=== PATIENT | female | born 1985 | race Caucasian/White ===

== ENCOUNTER 2023-10-25 23:19 | Observation (INO) | payer OTHER, SELFPAY ==
[2023-10-25] VITALS (8 sets, daily range): BP systolic 129–143; BP diastolic 96–101; PULSE 80–85; RESP 14–23; TEMP 36.7; O2SAT 97–99; BMI 31.6
--- NOTE | 2023-10-25 23:37 | ECG_ITS ---
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
--- NOTE | 2023-10-25 23:37 | XR_ITS ---
[place] [address] Patient Name: KRISTIAN CAN MRN: [id number] date: 1985 Sex: F Assigned Patient Location: ER Current Patient Location: ER Accession/Order Number: [id number] Exam Date: 10/25/2023 23:45 Report Date: 10/26/2023 00:12 At the request of: MJ ESQUIVEL Procedure: XR chest 1V EXAM: XR chest 1V HISTORY: chest pain COMPARISON: Chest x-ray 08/27/2012 TECHNIQUE: Single frontal view chest x-ray FINDINGS: No lung consolidation, large pleural effusion, pneumothorax, or acute bony abnormality. Cardiac size is unremarkable. XR/XR chest 1V IMPRESSION: No radiographic evidence for acute chest abnormality. Electronically authenticated by: JENNIFER JUAREZ Date: 10/26/2023 00:12
--- NOTE | 2023-10-25 23:38 | CT_ITS ---
The [address] [address] Patient Name: KRISTIAN CAN MRN: [id number] date: 1985 Sex: F Assigned Patient Location: ER Current Patient Location: ED.MAIN Accession/Order Number: [id number] Exam Date: 10/25/2023 23:45 Report Date: 10/26/2023 00:10 At the request of: MJ ESQUIVEL Procedure: CT stroke head/brain wo con NONCONTRAST HEAD CT COMPARISON: None. CLINICAL HISTORY: Headache. TECHNIQUE: Routine noncontrast images of the brain obtained. CT examination of the head without IV contrast. Dose reduction techniques were achieved by using: automated exposure control and/or adjustment of mA and /or kV according to patient size and/or use of iterative reconstruction technique. FINDINGS: Paranasal sinuses and mastoid air cells are clear. Intraorbital contents are unremarkable. No acute bony abnormality. Intracranially, there is no evidence of hemorrhage, mass effect, or midline shift. Ventricles and cisternal spaces are age appropriate. CT/CT stroke head/brain wo con IMPRESSION: No acute intracranial abnormality. Electronically authenticated by: REJI PEREZ Date: 10/26/2023 00:10
--- NOTE | 2023-10-25 23:39 | ED_ITS ---
HPI - General Adult General Chief complaint: Headache Stated complaint: HEADACHE, CHEST PAIN Time Seen by Provider: 10/25/23 23:29 Source: patient Mode of arrival: walk-in History of Present Illness HPI narrative: complains of headache for one week. nose bleed on and off during the week. States around 9AM today her vision became blurry and this continues. Right frontal parietal headache. States Squad stop by her home tonight and her BP was elevated 168 systolic. No history of Hypertension. No focal extremity weakness or numbness. She describes holding her phone close to her face since this AM to read Text and this is new. Denies past history of the same. Has been taking Tylenol for her headaches Related Data Previous Rx's Medication Instructions Recorded sumatriptan succinate 50 mg tablet See Rx Instructions PO .COMPLEX #9 10/26/23 tabs verapamil 240 mg 24 hr 240 mg PO DAILY #30 caps 10/26/23 capsule,extended release Allergies Allergy/AdvReac Type Severity Reaction Status Date / Time No Known Drug Allergies Allergy Verified 10/25/23 23:31 Review of Systems ROS Status of ROS 10 or more systems reviewed and unremark able except as noted in history and below [facility] Surgical History (Updated 10/26/23 @ 03:22 by Kaylen Neil) H/O hernia repair ?Z98.890 - Other specified postprocedural states (ICD-10) ?Z87.19 - Personal history of other diseases of the digestive system (ICD-10) History of tonsillectomy ?Z90.89 - Acquired absence of other organs (ICD-10) History of cholecystectomy ?Z90.49 - Acquired absence of other specified parts of digestive tract (ICD- 10) Family History (Updated 10/26/23 @ 03:23 by Kaylen Neil) Mother Family history of cancer Father Family history of CHF (congestive heart failure) Family history of hypertension Grandfather Family history of myocardial infarction Grandmother Family history of myocardial infarction Social History (Updated 10/26/23 @ 03:25 by Kaylen Neil) Within the past year, how often did you have a drink containing alcohol: never Score interpretation: A score less than 3 is consistent with normal alcohol consumption. 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 Highest level of school completed/degree received: high school graduate Are you now , , , , never or living with a partner: never In a typical week, how many times do you talk on the telephone with family, friends, or neighbors: 3 or more times per week How often do you get together with friends or relatives: 3 or more times per week How often do you attend confucianism or voodoo services: never Little interest or pleasure in doing things: not at all Feeling down, depressed, or hopeless: not at all Feel stressed/tense/nervous/anxious/difficulty sleeping: not at all Do you think of yourself as: straight/heterosexual Gender Identity: female Exam Constitutional Vital Signs, click to edit/add: Last Vital Signs Temp 97.8 F 10/26/23 13:23 Pulse 83 10/26/23 14:14 Resp 16 10/26/23 13:23 BP 119/82 10/26/23 14:14 Pulse Ox 97 10/26/23 14:14 O2 Del Method Room Air 10/26/23 14:14 Common normals: no apparent distress, average body habitus, oriented x3, no limitations, healthy appearing, alert and well nourished Eye Common normals: PERRL, EOMs intact bilaterally and conjunctivae normal Other: retina exam grossly normal Respiratory Common normals: normal respiratory effort, no retractions, no use of accessory muscles and clear to auscultation bilaterally Cardio Common normals: regular rate, regular rhythm, S1 normal heart sound and S2 normal heart sound Other: neg Bruits GI Common normals: Normal to inspection, nondistended, normoactive bowel sounds present, soft to palpation and non-tender Extremity Common normals: normal to inspection and full ROM Neuro Common normals: oriented x3, CN's II-XII intact bilaterally, moves all extremities, no focal motor deficits and no sensory deficits noted Psych Appearance: grossly normal Course Vital Signs Vital signs: Vital Signs Pulse Oximetry 99 10/25/23 23:26 Temperature 97.8 F 10/26/23 13:23 Pulse Rate 83 10/26/23 14:14 Respiratory Rate 16 10/26/23 13:23 Blood Pressure 119/82 10/26/23 14:14 Pulse Oximetry 97 10/26/23 14:14 Oxygen Delivery Method Room Air 10/26/23 14:14 Medical Decision Making MDM Narrative Medical decision making narrative: patient presents complaining of headache of one week duration. Nose bleed on and off. Around 9AM 10/25/23 developed blurred vision that has continued. blurred vision involves both eye. Jigna was called to her home and her BP was elevated at 168 systolic. She came in for evaluation . Her physical exam is nonrevealing including gross inspection of her retina bilat. CT brain and neck neg. Discussed with materials and corrosion engineer Stroke Neurologist at [facility] and he recommended admission with plan for MRI brain with and without contrast and Neurology consult. Neurology consult here will have to be Teleneurology. Discussed with the [facility] Dr Hu and patient accepted for admission. Patient's BP here is normal. She was given cocktail of magnesium and solumedrol for her headache prior to transfer to the floor Lab Data Labs: Lab Results 10/25/23 Range/Units 23:30 WBC 6.9 (4.0-11.0) 10^3/uL RBC 4.47 (4.20-5.40) 10^6/uL Hgb 13.4 (12.0-16.0) g/dL Hct 40.2 (36.0-48.0) % MCV 89.9 (81.0-99.0) fL MCH 30.0 (26.7-34.0) pg MCHC 33.3 (29.9-35.2) g/dL RDW 12.0 (11.0-15.0) % Plt Count 182 (150-450) 10^3/uL MPV 9.5 (9.5-13.5) fL Neut % (Auto) 49.5 (43.0-75.0) % Lymph % (Auto) 41.0 (20.5-60.0) % [place] % (Auto) 7.8 (1.7-12.0) % Eos % (Auto) 0.9 (0.9-7.0) % Baso % (Auto) 0.7 (0.2-2.0) % Neut # (Auto) 3.4 (1.4-6.5) 10^3/uL Lymph # (Auto) 2.8 (1.2-3.8) 10^3/uL [place] # (Auto) 0.5 (0.3-0.8) 10^3/uL Eos # (Auto) 0.1 (0.0-0.7) 10^3/uL Baso # (Auto) 0.1 (0.0-0.1) 10^3/uL Abs Immat Gran (auto) 0.01 (0.00-0.03) 10^3/uL Imm/Tot Granulo (auto) 0.1 (0.0-0.5) % Sodium 139 (136-145) mmol/L Potassium 3.3 L (3.5-5.1) mmol/L Chloride 103 (98-107) mmol/L Carbon Dioxide 25.9 (21.0-32.0) mmol/L Anion Gap 13.4 BUN 11.0 (7.0-18.0) mg/dL Creatinine 0.98 (0.55-1.02) mg/dL Est GFR ( Amer) >60 (>=60) Est GFR (Non-Af Amer) >60 (>=60) BUN/Creatinine Ratio 11.2 Glucose 99 (74-106) mg/dL Calcium 9.2 (8.5-10.1) mg/dL Troponin I High Sens <4.0 L (4.0-51.3) pg/mL Imaging Data CT scan - head: Radiologist's impression: [place] [address] CT Scan Report Signed Patient: KRISTIAN CAN MR#: [id number] : 1985 Acct:[id number] Age/Sex: 38 / F ADM Date: 10/25/23 Loc: ER Attending Dr: Ordering Physician: Dionte Abreu Date of Service: 10/26/23 Procedure(s): CT angio neck Accession Number(s): [id number] cc: Physician,Non-Staff M.DJohny~ The [address] [address] Patient Name: KRISTIAN CAN MRN: [id number] date: 1985 Sex: F Assigned Patient Location: ER Current Patient Location: ER Accession/Order Number: [id number] Exam Date: 10/26/2023 00:25 Report Date: 10/26/2023 01:25 At the request of: DIONTE ABREU Procedure: CT angio neck CT angio head, CT angio neck INDICATION:38 years old; headache for one week. Blurred vision since 10/25/2020 3:00 in the morning. TECHNIQUE: CT angiogram of the head and neck was performed. Coronal, sagittal and 3-D reformats were created and reviewed. IV contrast Omnipaque 350 100mL. No complications . Carotid stenosis measurements were made according to the NASCET criteria. Ionizing radiation dose reduced via iterative reconstruction/FBP blend and body size kV/mA adjustment. COMPARISON: Head CT dated 10/25/2023 at 11:55 PM. FINDINGS: NECK FINDINGS: AORTIC ARCH: Normal origin of the innominate, left common carotid and left subclavian arteries. ANTERIOR CIRCULATION: , Carotid arteries are patent. Carotid bifurcations are patent. Cervical ICA are patent up to the skull base. No stenosis or thrombus. No dissection. POSTERIOR CIRCULATION: There is irregular appearance of the V1 segment of the right vertebral artery, which has the appearance of streak artifacts. No intraluminal thrombus or dissection is seen. The left V1 segment has a normal appearance. The V2 and V3 segments are patent. No intraluminal thrombus. No dissection. DEVELOPMENTAL ANOMALIES: None. OTHER: No thyroid nodule or adenopathy. HEAD BRAIN: Please see the report of the noncontrast head CT. ANTERIOR CIRCULATION: The intrapetrous, intracavernous, supraclinoid ICA are patent. Intracranial termini are patent. DIONICIO patent bilaterally. MCA patent bilaterally. No stenosis or thrombus. No large vessel occlusion. No aneurysm is appreciated. The distal distributions are symmetric. POSTERIOR CIRCULATION: The V4 segments are patent. PICA patent. Basilar artery and basilar tip are patent. SCA patent bilaterally. MASTER DATA ANALYST patent bilaterally. No large vessel occlusion. Distal distributions appear symmetric. DEVELOPMENTAL ANOMALIES: None. OTHER: No areas of pathologic intracranial enhancement. The study is not optimized for venous evaluation. CT/CT angio neck IMPRESSION: 1. Streak artifacts overlying the V1 segment of the right vertebral artery. The remainder the extracranial vessels demonstrate no stenosis, thrombus, dissection, or large vessel occlusion. 2. Intracranial vessels demonstrate no stenosis, thrombus, aneurysm, or large vessel occlusion. 3. No pathologic intracranial enhancement. If there is continued suspicion for intracranial pathology including, but not limited to, migraine, demyelination, or infarction, then MRI with diffusion imaging would be more sensitive. Electronically authenticated by: WILLAM SUMNER Date: 10/26/2023 01:25 Dictated By: Willam Sumner M.D. Signed By: 10/26/23 0129 Discharge Plan Discharge Chief Complaint: Headache Clinical Impression: Headache, Blurred vision, bilateral Patient Disposition: Admitted as Observation Time of Disposition Decision: 03:24 Condition: Good Discharge Date/Time: 10/26/23 03:24
[2023-10-25 23:56] LABS: Basophils Absolute Auto 0.1 10^3/uL (0.0-0.1); Basophils Percent Auto 0.7 % (0.2-2.0); Eosinophils Absolute Auto 0.1 10^3/uL (0.0-0.7); Eosinophils Percent Auto 0.9 % (0.9-7.0); Hematocrit 40.2 % (36.0-48.0); Hemoglobin 13.4 g/dL (12.0-16.0); Immature Granulocytes Abs Auto 0.01 10^3/uL (0.00-0.03); Immature Granulocytes Pct Auto 0.1 % (0.0-0.5); Lymphocytes Absolute Auto 2.8 10^3/uL (1.2-3.8); Mean Corpuscular HGB Conc 33.3 g/dL (29.9-35.2); Mean Corpuscular Volume 89.9 fL (81.0-99.0); Mean Platelet Volume 9.5 fL (9.5-13.5); Monocytes Absolute Auto 0.5 10^3/uL (0.3-0.8); Monocytes Percent Auto 7.8 % (1.7-12.0); Neutrophils Absolute Auto 3.4 10^3/uL (1.4-6.5); Neutrophils Percent Auto 49.5 % (43.0-75.0); Platelet Count 182 10^3/uL (150-450); Red Blood Count 4.47 10^6/uL (4.20-5.40); White Blood Count 6.9 10^3/uL (4.0-11.0)
[2023-10-26] VITALS (36 sets, daily range): BP systolic 113–147; BP diastolic 67–100; PULSE 67–99; RESP 9–23; TEMP 36.6; O2SAT 94–99; BMI 34.3
[2023-10-26 00:14] LABS: Anion Gap 13.4; BUN Creatinine Ratio 11.2; Calcium 9.2 mg/dL (8.5-10.1); Carbon Dioxide 25.9 mmol/L (21.0-32.0); Chloride 103 mmol/L (98-107); Estimated GFR (African America >60 (>=60); Estimated GFR (Non-African Ame >60 (>=60); Glucose 99 mg/dL (74-106); Potassium 3.3 mmol/L (3.5-5.1); Sodium 139 mmol/L (136-145); Troponin I High Sensitivity <4.0 pg/mL (4.0-51.3)
--- NOTE | 2023-10-26 00:17 | CT_ITS ---
The [address] [address] Patient Name: KRISTIAN CAN MRN: [id number] date: 1985 Sex: F Assigned Patient Location: ER Current Patient Location: Accession/Order Number: [id number] Exam Date: 10/26/2023 00:25 Report Date: 10/26/2023 01:25 At the request of: MJ ESQUIVEL Procedure: CT angio neck CT angio head, CT angio neck INDICATION:38 years old; headache for one week. Blurred vision since 10/25/2020 3:00 in the morning. TECHNIQUE: CT angiogram of the head and neck was performed. Coronal, sagittal and 3-D reformats were created and reviewed. IV contrast Omnipaque 350 100mL. No complications . Carotid stenosis measurements were made according to the NASCET criteria. Ionizing radiation dose reduced via iterative reconstruction/FBP blend and body size kV/mA adjustment. COMPARISON: Head CT dated 10/25/2023 at 11:55 PM. FINDINGS: NECK FINDINGS: AORTIC ARCH: Normal origin of the innominate, left common carotid and left subclavian arteries. ANTERIOR CIRCULATION: , Carotid arteries are patent. Carotid bifurcations are patent. Cervical ICA are patent up to the skull base. No stenosis or thrombus. No dissection. POSTERIOR CIRCULATION: There is irregular appearance of the V1 segment of the right vertebral artery, which has the appearance of streak artifacts. No intraluminal thrombus or dissection is seen. The left V1 segment has a normal appearance. The V2 and V3 segments are patent. No intraluminal thrombus. No dissection. DEVELOPMENTAL ANOMALIES: None. OTHER: No thyroid nodule or adenopathy. HEAD BRAIN: Please see the report of the noncontrast head CT. ANTERIOR CIRCULATION: The intrapetrous, intracavernous, supraclinoid ICA are patent. Intracranial termini are patent. DIONICIO patent bilaterally. MCA patent bilaterally. No stenosis or thrombus. No large vessel occlusion. No aneurysm is appreciated. The distal distributions are symmetric. POSTERIOR CIRCULATION: The V4 segments are patent. PICA patent. Basilar artery and basilar tip are patent. SCA patent bilaterally. FILM LIBRARIAN patent bilaterally. No large vessel occlusion. Distal distributions appear symmetric. DEVELOPMENTAL ANOMALIES: None. OTHER: No areas of pathologic intracranial enhancement. The study is not optimized for venous evaluation. CT/CT angio neck IMPRESSION: 1. Streak artifacts overlying the V1 segment of the right vertebral artery. The remainder the extracranial vessels demonstrate no stenosis, thrombus, dissection, or large vessel occlusion. 2. Intracranial vessels demonstrate no stenosis, thrombus, aneurysm, or large vessel occlusion. 3. No pathologic intracranial enhancement. If there is continued suspicion for intracranial pathology including, but not limited to, migraine, demyelination, or infarction, then MRI with diffusion imaging would be more sensitive. Electronically authenticated by: PETER HARRISON Date: 10/26/2023 01:25
--- NOTE | 2023-10-26 00:17 | CT_ITS ---
The [address] [address] Patient Name: KRISTIAN CAN MRN: [id number] date: 1985 Sex: F Assigned Patient Location: ER Current Patient Location: Accession/Order Number: [id number] Exam Date: 10/26/2023 00:25 Report Date: 10/26/2023 01:25 At the request of: JM ESQUIVEL Procedure: CT angio head CT angio head, CT angio neck INDICATION:38 years old; headache for one week. Blurred vision since 10/25/2020 3:00 in the morning. TECHNIQUE: CT angiogram of the head and neck was performed. Coronal, sagittal and 3-D reformats were created and reviewed. IV contrast Omnipaque 350 100mL. No complications . Carotid stenosis measurements were made according to the NASCET criteria. Ionizing radiation dose reduced via iterative reconstruction/FBP blend and body size kV/mA adjustment. COMPARISON: Head CT dated 10/25/2023 at 11:55 PM. FINDINGS: NECK FINDINGS: AORTIC ARCH: Normal origin of the innominate, left common carotid and left subclavian arteries. ANTERIOR CIRCULATION: , Carotid arteries are patent. Carotid bifurcations are patent. Cervical ICA are patent up to the skull base. No stenosis or thrombus. No dissection. POSTERIOR CIRCULATION: There is irregular appearance of the V1 segment of the right vertebral artery, which has the appearance of streak artifacts. No intraluminal thrombus or dissection is seen. The left V1 segment has a normal appearance. The V2 and V3 segments are patent. No intraluminal thrombus. No dissection. DEVELOPMENTAL ANOMALIES: None. OTHER: No thyroid nodule or adenopathy. HEAD BRAIN: Please see the report of the noncontrast head CT. ANTERIOR CIRCULATION: The intrapetrous, intracavernous, supraclinoid ICA are patent. Intracranial termini are patent. DIONICIO patent bilaterally. MCA patent bilaterally. No stenosis or thrombus. No large vessel occlusion. No aneurysm is appreciated. The distal distributions are symmetric. POSTERIOR CIRCULATION: The V4 segments are patent. PICA patent. Basilar artery and basilar tip are patent. SCA patent bilaterally. ASH HANDLER patent bilaterally. No large vessel occlusion. Distal distributions appear symmetric. DEVELOPMENTAL ANOMALIES: None. OTHER: No areas of pathologic intracranial enhancement. The study is not optimized for venous evaluation. CT/CT angio head IMPRESSION: 1. Streak artifacts overlying the V1 segment of the right vertebral artery. The remainder the extracranial vessels demonstrate no stenosis, thrombus, dissection, or large vessel occlusion. 2. Intracranial vessels demonstrate no stenosis, thrombus, aneurysm, or large vessel occlusion. 3. No pathologic intracranial enhancement. If there is continued suspicion for intracranial pathology including, but not limited to, migraine, demyelination, or infarction, then MRI with diffusion imaging would be more sensitive. Electronically authenticated by: PETER HARRISON Date: 10/26/2023 01:25
--- NOTE | 2023-10-26 01:45 | PC.NURSE ---
patient in with c/o right temporal headache for past week, described as constant but waxes and wanes with intensity. patient states she has been taking tylenol like candy for past week. Patient reports today she woke up around 0900 and had blurred vision to bilateral eyes but thought it would go away. patient reports she developed some slight chest pain so her father called ems. ems found patient to be hypertensive and suggested she go to er. patient denies any other symptoms.
[2023-10-26] MEDS: MAGNESIUM SULFATE IN WATER 2 GM/50 ML PREMIX IV (02:40)
[2023-10-26] MEDS: METHYLPREDNISOLONE SOD SUCC PF 125 MG/2 ML VIAL IVP (02:40)
--- NOTE | 2023-10-26 03:23 | PC.NURSE ---
patient taken to room on med surg by wheelchair. patient stable at this time. patient placed on tele box 5. patient report given to alexandra ba
--- NOTE | 2023-10-26 04:32 | MR_ITS ---
The [address] [address] Patient Name: KRISTIAN CAN MRN: [id number] date: 1985 Sex: F Assigned Patient Location: MS Current Patient Location: MS Accession/Order Number: [id number] Exam Date: 10/26/2023 07:23 Report Date: 10/26/2023 08:37 At the request of: KAROLINA SIMS Procedure: MR head/brain wo con EXAM: MR head/brain wo con HISTORY: Headache, vision changes COMPARISON: CT head 10/25/2023, CTA head and neck 10/26/2023. TECHNIQUE: Multiplanar multisequence MR imaging of the brain was performed without intravenous contrast. FINDINGS: Calvarium/skull base: No focal marrow replacing lesion suggestive of neoplasm. Trace left mastoid fluid. Orbits: Grossly unremarkable. Paranasal sinuses: Inferior left maxillary sinus mucosal retention cyst versus polyp. Brain: No restricted diffusion. T2 FLAIR signal hyperintensity involving the posterior left centrum semiovale white matter and right temporal deep white matter. No mass effect, hemorrhage, or hydrocephalus. Grossly normal flow-related signal in the major intracranial arteries and dural sinuses. MR/MR head/brain wo con IMPRESSION: 1. No acute ischemia. 2. T2 FLAIR hyperintense foci involving the deep right temporal white matter and posterior left centrum semiovale white matter. These are age advanced but nonspecific, typically attributed to prior trauma/inflammation/demyelination, or chronic ischemia associated with migraine/atherosclerosis. Electronically authenticated by: SHEYLA ACHARYA Date: 10/26/2023 08:37
--- NOTE | 2023-10-26 04:33 | P.PN_ITS ---
Progress Note: Subjective Subjective Interval history: Pt is a 38F with pMH of migraine headaches who presented to the ED with complaint of headache which has been constant for the past 1 week. The headache is described as R sided, sharp and sometimes dull, radiating posteriorly from the R eye to the temporo-parietal region, pain is currently 7/10 with no relieving or exacerbating factors. For the last few days, the patient notes that her vision has been altered from baseline and she is seeing shapes without clear definition anymore and all the colors blur together. This is most prominent in her L eye but present in both. She has been taking 1500mg of Tylenold TID at home with no relief. Pt denies any fevers, chills, chest pain, shortness of breath, syncope, ambulatory dysfunction. She does have a family history of cancer in her mother who had brain cancer. 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 No home medications No allergies No toxic habits Exam Narrative Exam Narrative: General: mild painful distress HEENT: No rhinorrhea NC AT Neck: FROM CV: RRR no murmur Pulm: CTA. No wheezes GI: No distension, no guarding Musculoskeletal: VILLAR, no clubbing or edema Neuro: AAOx3. Conversing appropriately. Visual deficits noted on exam, L>R. Psych: Calm, cooperative. Constitutional Vital Signs, click to edit/add: Last Vital Signs Temp 97.8 F 10/26/23 03:23 Pulse 69 10/26/23 03:23 Resp 20 10/26/23 03:23 BP 147/97 H 10/26/23 03:23 Pulse Ox 96 10/26/23 03:23 O2 Del Method Room Air 10/26/23 03:23 Progress Note: Objective Labs Labs: Short CBC 10/25/23 Range/Units 23:30 WBC 6.9 (4.0-11.0) 10^3/uL Hgb 13.4 (12.0-16.0) g/dL Hct 40.2 (36.0-48.0) % Plt Count 182 (150-450) 10^3/uL BMP 10/25/23 23:30 Sodium 139 Potassium 3.3 L Chloride 103 Carbon Dioxide 25.9 BUN 11.0 Creatinine 0.98 Glucose 99 Calcium 9.2 Progress Note: A&P Assessment and Plan (1) Headache: Assessment and Plan: Constant headache x 1 week associated with blurred vision Ddx: Complex migraine, CVA, Tumor/malignancy Place in observation ]Percocet PRN pain MRI Brain without contrast (2) Blurred vision, bilateral: Telemedicine Attestation Telemedicine Attestation I conducted this encounter from [[place]] via secure live, [id number] video conference with the patient, located at [facility] with [nurse]. Prior to the interview, the risks and benefits of telemedicine were discussed with the patient and verbal consent was obtained.
[2023-10-26] MEDS: OXYCODONE HCL/ACETAMINOPHEN 5MG/325MG 1 TAB PO (05:07)
[2023-10-26] MEDS: ENOXAPARIN SODIUM 40 MG/0.4 ML SYRINGE SUBQ (05:07)
[2023-10-26] MEDS: LACTATED RINGER'S SOLUTION 1,000 ML 125 ML IV (11:54)
[2023-10-26] MEDS: KETOROLAC TROMETHAMINE 30 MG/ML VIAL IVP (11:55)
[2023-10-26] MEDS: PROCHLORPERAZINE 10 MG/2 ML VIAL IV (11:55)
[2023-10-26] MEDS: DIPHENHYDRAMINE HCL 50 MG/ML (1ML) VIAL IV (11:55)
--- NOTE | 2023-10-26 12:13 | P.HP_ITS ---
H&P: HPI History of Present Illness Chief complaint: HEADACHE, CHEST PAIN Narrative: HPI and Hospital Course: 38 y o female with hx of migraine GLORIA presented to ED with blurred vision, associated headache, elevated BP and interrmittent dizziness, photophobia for past 3 days. She was admitted for possible migraine with aura due to intractable pain but also to rule out acute CVA. Her work up included an MRI breanna, CTA head/neck with no evidence of acute stroke, sig athereosclerotic disease. Mri brain was indicative of non specific white matter changes seen in Migraine GLORIA. Patient was evaluated by Tele neurology and recommended treatment for her Migraine. Her pain resolved with combination of IV compazine, benradryl and Toradol. Patient stable for discharge. Needs to f./u with PCP for treatment of migraine and newly diagnosed HTN Admission Diagnosis Migraine with visual aura HTN Discharge diagnosis as above Discharge status stable Review of Systems ROS Status of ROS 10 or more systems reviewed and unremark able except as noted in history and below PFS PFS Surgical History (Updated 10/26/23 @ 03:22 by Kaylen Neil) H/O hernia repair ?Z98.890 - Other specified postprocedural states (ICD-10) ?Z87.19 - Personal history of other diseases of the digestive system (ICD-10) History of tonsillectomy ?Z90.89 - Acquired absence of other organs (ICD-10) History of cholecystectomy ?Z90.49 - Acquired absence of other specified parts of digestive tract (ICD- 10) Family History (Updated 10/26/23 @ 03:23 by Kaylen Neil) Mother Family history of cancer Father Family history of CHF (congestive heart failure) Family history of hypertension Grandfather Family history of myocardial infarction Grandmother Family history of myocardial infarction Social History (Updated 10/26/23 @ 03:25 by Kaylen Neil) Within the past year, how often did you have a drink containing alcohol: never Score interpretation: A score less than 3 is consistent with normal alcohol consumption. 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 Highest level of school completed/degree received: high school graduate Are you now , , , , never or living with a partner: never In a typical week, how many times do you talk on the telephone with family, friends, or neighbors: 3 or more times per week How often do you get together with friends or relatives: 3 or more times per week How often do you attend jainism or oriental orthodox services: never Little interest or pleasure in doing things: not at all Feeling down, depressed, or hopeless: not at all Feel stressed/tense/nervous/anxious/difficulty sleeping: not at all Do you think of yourself as: straight/heterosexual Gender Identity: female Meds Home Medications and Allergies Home Medications Medication Instructions Recorded Confirmed Type No Known Home Medications 10/25/23 10/25/23 History Allergies Allergy/AdvReac Type Severity Reaction Status Date / Time No Known Drug Allergies Allergy Verified 10/25/23 23:31 Exam Constitutional Vital Signs, click to edit/add: Last Vital Signs Temp 97.8 F 10/26/23 03:23 Pulse 92 H 10/26/23 11:58 Resp 20 10/26/23 03:23 BP 147/97 H 10/26/23 03:23 Pulse Ox 96 10/26/23 03:23 O2 Del Method Room Air 10/26/23 03:23 Documenting provider has reviewed patient's vital signs: yes Common normals: no apparent distress and oriented x3 General appearance: cooperative HENMT Common normals: normocephalic and head/scalp atraumatic Head and scalp: normocephalic and atraumatic Eye Common normals: conjunctivae normal and no scleral icterus Conjunctiva: conjunctiva(e) normal Respiratory Common normals: normal respiratory effort and clear to auscultation bilaterally Effort & inspection: able to speak in complete sentences Auscultation: clear to auscultation bilaterally Cardio Common normals: regular rate, S1 normal heart sound and S2 normal heart sound Rate: regular rate Heart sounds: S1 normal and S2 normal GI Common normals: Normal to inspection, nondistended, normoactive bowel sounds present, soft to palpation, non-tender and no hepatosplenomegaly Palpation: soft and no hepatosplenomegaly Extremity Common normals: no clubbing, cyanosis or edema Neuro Common normals: oriented x3, moves all extremities and no focal motor deficits Psych Common normals: mental status grossly normal, denies hallucinations, denies homicidal ideation and denies suicidal ideation Results Labs Labs: Short CBC 10/25/23 Range/Units 23:30 WBC 6.9 (4.0-11.0) 10^3/uL Hgb 13.4 (12.0-16.0) g/dL Hct 40.2 (36.0-48.0) % Plt Count 182 (150-450) 10^3/uL BMP 10/25/23 23:30 Sodium 139 Potassium 3.3 L Chloride 103 Carbon Dioxide 25.9 BUN 11.0 Creatinine 0.98 Glucose 99 Calcium 9.2 Assessment and Plan Assessment and Plan (1) HTN (hypertension): Assessment and Plan: New diagnosis. Will start on Verapamil to help with migraine px too Asymptomatic. F/u with PCP in one week Qualifiers: Hypertension type: primary hypertension Qualified Code(s): I10 - Essential (primary) hypertension (2) Migraine with persistent visual aura: Assessment and Plan: Daily migraine GLORIA, this time she had neurological symptoms including visual aura. She was admitted for intractable migraine and also to r/o acute CVA. No evidence of CVA on MRI. CTA head/neck - unremarkable. Migraine improved with IV toradol, compazine and benadryl combination Will d/c on Imitrex as needed along with Verapamil for migraine px and HTN
[2023-10-26] MEDS: VERAPAMIL HCL ER 240 MG TABLET PO (13:24)
== END 2023-10-26 14:49 | disposition home or self-care (01) ==
LOC: ER 10-26 02:55 → MS 10-26 03:17
PROVIDERS: Admitting Provider Internal Medicine; Emergency Provider Internal Medicine; Visit Provider Internal Medicine
DX: G43.109 Migraine with aura, not intractable, without status migrainosus (principal); I10 Essential (primary) hypertension; Z90.49 Acquired absence of other specified parts of digestive tract; Z98.890 Other specified postprocedural states; Z90.89 Acquired absence of other organs; F17.290 Nicotine dependence, other tobacco product, uncomplicated; Z85.41 Personal history of malignant neoplasm of cervix uteri
CPT/HCPCS: 36415; 70450; 70496; 70498; 70551; 71045; 80048; 84484; 85025; 93005; 96365; 96372; 96375; 99285; G0378; J2930; Q3014; Q9967